=== PATIENT | male | born 1970 ===

== ENCOUNTER 2016-09-29 16:08 | Inpatient (IN) | payer MEDICAID ==
[2016-09-29 17:53] LABS: BASO % 0.3 % (0.0-2.0); EOS # 0.2 K/uL (0.0-0.7); EOS % 2.5 % (0.0-4.0); HEMATOCRIT 44.2 % (35.0-51.0); LYMPH # 1.5 K/uL (1.0-4.3); LYMPH % 19.8 % (20.0-40.0); MEAN CELL VOLUME 88.4 fL (80.0-94.0); MEAN CORPUSCULAR HEMOGLOBIN 29.8 pg (27.0-31.0); MEAN CORPUSCULAR HGB CONC 33.7 g/dL (33.0-37.0); MEAN PLATELET VOLUME 10.9 fL (7.2-11.7); MONO # 0.5 K/uL (0.0-0.8); MONO % 6.6 % (0.0-10.0); NRBC % 0.1 % (0.0-2.0); WHITE BLOOD COUNT 7.4 K/uL (4.8-10.8)
[2016-09-29 18:00] LABS: CHLORIDE 106 mmol/L (98-107); SODIUM 144 mmol/L (132-148)
[2016-09-29 18:01] LABS: POTASSIUM 3.7 mmol/L (3.6-5.2)
[2016-09-29 18:03] LABS: ALB/GLOB RATIO 1.2 (1.0-2.1); ALKALINE PHOSPHATASE 86 U/L (38-126); ALT/SGPT 16 U/L (21-72); AST/SGOT 17 U/L (17-59); BLOOD UREA NITROGEN 12 mg/dL (9-20); CARBON DIOXIDE 30 mmol/L (22-30); GFR AFRICAN-AMERICAN > 60; GLUCOSE,RANDOM 94 mg/dL (75-110); TOTAL PROTEIN 7.1 g/dL (6.3-8.3)
[2016-09-29 18:04] LABS: ALCOHOL SERUM < 10 mg/dl (0-10); CALCIUM 8.8 mg/dl (8.6-10.4)
--- NOTE | 2016-09-29 18:10 | C.PDOC ---
History Of Present Illness 46 y/o male presents to the ED requesting detox from heroin. Pt arrives prescreened; states he snorts heroin, last use this am. No physical complaints at this time. Time Seen by Provider: 09/29/16 17:52 Chief Complaint (Nursing): Substance Abuse History Per: Patient History/Exam Limitations: no limitations Suicide/Self Injury Attempted (Context): None Modifying Factor(s): Narcotics Severity: Mild Involuntary Hold By: None Recent travel outside of the [place]: No Past Medical History Reviewed: Historical Data, Nursing Documentation, Vital Signs Vital Signs: Last Vital Signs Temp 98.3 F 09/29/16 16:28 Pulse 60 09/29/16 16:28 Resp 20 09/29/16 16:28 BP 183/95 H 09/29/16 16:28 Pulse Ox 95 09/29/16 18:10 - Medical History PMH: Asthma Family History: States: Unknown Family Hx - Social History Hx Alcohol Use: Yes Hx Substance Use: Yes - Immunization History Hx Tetanus Toxoid Vaccination: No Hx Influenza Vaccination: No Hx Pneumococcal Vaccination: No Review Of Systems Except As Marked, All Systems Reviewed And Found Negative. Constitutional: Negative for: Fever Cardiovascular: Negative for: Chest Pain Respiratory: Negative for: Shortness of Breath Gastrointestinal: Negative for: Vomiting Neurological: Negative for: Headache Psych: Negative for: Suicidal ideation Physical Exam - Physical Exam Appears: Non-toxic, No Acute Distress Skin: Warm, Dry, No Rash Head: Atraumatic, Normacephalic Neck: Normal, Normal ROM, Supple Chest: Symmetrical Cardiovascular: Rhythm Regular, No Murmur Respiratory: Normal Breath Sounds, No Rales, No Rhonchi, No Wheezing Extremity: Bilateral: Atraumatic Neurological/Psych: Oriented x3, Normal Speech ED Course And Treatment - Laboratory Results Result Diagrams: 09/29/16 17:47 09/29/16 17:47 O2 Sat by Pulse Oximetry: 95 (room air) Pulse Ox Interpretation: Normal Disposition Counseled Patient/Family Regarding: Studies Performed, Diagnosis - Disposition Disposition: HOSPITALIZED Disposition Time: 18:47 Condition: GUARDED - Clinical Impression Clinical Impression: Drug dependence, Opiate dependence - Scribe Statement The provider has reviewed the documentation as recorded by the Katlyn Hardy Provider Attestation: All medical record entries made by the Katlyn were at my direction and personally dictated by me. I have reviewed the chart and agree that the record accurately reflects my personal performance of the history, physical exam, medical decision making, and the department course for this patient. I have also personally directed, reviewed, and agree with the discharge instructions and disposition. Decision To Admit - Pt Status Changed To: Hospital Disposition Of: Inpatient - Admit Certification Admit to Inpatient:: After my assessment, the patient will require hospitalization for at least two midnights. This is because of the severity of symptoms shown, intensity of services needed, and/or the medical risk in this patient being treated as an outpatient. - InPatient: Physician Admission Certification: I certify that this patient requires 2 or more midnights of care for the following reason:: needds inpatient detox - . Bed Request Type: Detox Patient Diagnosis: Drug dependence, Opiate dependence
[2016-09-29 18:14] LABS: RBC URINE 31 /hpf (0-3); URINE BILIRUBIN NEGATIVE (NEGATIVE); URINE BLOOD 1+ (NEGATIVE); URINE COLOR Yellow (YELLOW); URINE GLUCOSE (UA) NORMAL (Normal); URINE KETONE TRACE mg/dL (NEGATIVE); URINE LEUKOCYTE ESTERASE NEG Leu/uL (Negative); URINE PROTEIN NEGATIVE (NEGATIVE); WBC URINE 1 /hpf (0-5)
[2016-09-29] MEDS ORDERED: Buprenorphine Hydrochloride 2 mg SL ONE ×2 (19:49→20:50)
[2016-09-29] MEDS ORDERED: Albuterol HFA 90 mcg/actuation (8 g) INH PRN (21:17)
[2016-09-29] MEDS ORDERED: Aluminum Hydroxide/Magnesium Hydroxide Susp (30 mL) PO PRN (21:37)
[2016-09-30] MEDS: Buprenorphine Hydrochloride 2 mg SL SCH (09:51)
--- NOTE | 2016-09-30 13:20 | PCM.PSYCH ---
Initial Psychiatric Evaluation - Initial Psychiatric Evaluation Type of Admission: Voluntary Legal Status: Capacity Chief Complaint (in patient's own words): "I needed help, thank you very much" History of Present Illness and Precipitating Events: The patient is seen, chart reviewed and case discussed. This is a 46-year-old male, with 2 sons aged 1 and 2, and he lives with his sons and . 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 The patient admits to using up to 20 bags of heroin intranasally for the last 8 months. However, the first time he used was when he was 17 years old. He also uses cocaine occasionally, intranasally. He denies all other drugs and alcohol. He has been to detox once in the past but never been to rehabilitation or Suboxone or methadone maintenance. He goes to [facility] sometimes. No psych history or symptoms. He has withdrawal symptoms already. Past psych history: Denies Family psych history: Denies Medical history: Asthma and HTN (non-comp with meds: Norvasc 10 and Zestril 40) Current Medications: Active Medications Generic Name Dose Route Start Last Admin Trade Name Freq PRN Reason Stop Dose Admin Al Hydrox/Mg Hydrox/Simethicone 30 ml 09/29/16 21:37 Maalox 30 Ml PO TID PRN Indigestion / Heartburn Albuterol 1 puff 09/29/16 21:17 Ventolin Hfa 90 Mcg/Actuation (8 G) INH RQ6 PRN Shortness of Breath Buprenorphine HCl 8 mg 09/30/16 10:00 09/30/16 09:51 Subutex SL 10/04/16 09:59 8 mg DAILY ALEJANDRA Administration Taper Clonidine HCl 0.1 mg 09/29/16 21:37 Catapres PO Q8 PRN COWS Score More or Equal to 5 Loperamide HCl 2 mg 09/29/16 21:37 Imodium PO Q8 PRN Diarrhea Ondansetron HCl 4 mg 09/29/16 21:37 Zofran Tab PO Q8 PRN Nausea/Vomiting Trazodone HCl 100 mg 09/29/16 21:40 Desyrel PO HS PRN insomnia Past Psychiatric History - Past Psychiatric History Previous Treatment History: None Pertinent Medical Hx (Current Medical&Sleep Prob, Allergies): Allergies Allergy/AdvReac Type Severity Reaction Status Date / Time No Known Allergies Allergy Verified 09/29/16 16:39 Albuterol HFA [Ventolin HFA 90 mcg/actuation (8 g)] 2 puff IH [id number] 09/29/16 Review of Systems - Neurological Neurological: UNREMARKABLE - Psychiatric Psychiatric: Abnormal Sleep Pattern, Anxiety. absent: Depression, Hallucinations, Homicidal Ideation, Paranoia, Suicidal Ideation Mental Status Examination - Personal Presentation Personal Presentation: Looks older than stated age - Affect Affect: Broad - Motor Activity Motor Activity: Calm - Reliability in Providing Information Reliability in Providing Information: Good - Speech Speech: Organized - Mood Mood: Neutral - Formal Thought Process Formal Thought Process: No Impairment - Cognitive Functions Orientation: Person, Place, Situation, Time Sensorium: Alert Attention/Concentration: Attentive Estimate of Intelligence: Average Judgement: Intact, as evidence by: Insight regarding need for hospitalization Memory: Recent intact, as evidence by: Ability to recall events of the day, Remote intact, as evidenced by: Abilit to recall sig. life events - Risk Risk: Withdrawal, Diminished functioning - Strength & Assets Inventory Strength & Assets Inventory: Family support, Employment history, Cooperative DSM 5 DX - DSM 5 DSM 5 Diagnosis: Opioid withdrawal Opioid use d/o - severe Cocaine use d/o - moderate - Recommended/Plan of Treatment Treatment Recommendations and Plan of Treatment: Opioids: Methadone detox As needed meds and vitamins Attend groups and activities MS for abstinence and CBT for relapse prevention Support and psychoeducation Consider and encourage MAT Refer to after care Cocaine:MS for abstinence 33 min Projected ELOS: 4 days Prognosis: Good with treatment Discharge Plan and Discharge Criteria: No wdw sxs Refer to IOP and MAT (Suboxone) - Smoking Cessation Smoking Cessation Initiated: No Reason for not providing: not smoking
[2016-10-01] MEDS: Buprenorphine Hydrochloride 2 mg SL SCH (09:24)
--- NOTE | 2016-10-01 14:16 | PCM.PYCHPN ---
Psychiatric Progress Note - Psychiatric Progress Note Patient seen today, length of contact: 15 min Patient Chief Complaint: "Doing great" Problems Identified/Issues Discussed: The pt is seen, chart reviewed, case discussed with staff. The pt is compliant with medications and reports no side-effects. Symptoms are improving but needs more time to stabilize. After care discussed, support and psychoeducation given. Medication Change: Yes (detox changes daily) Medical Record Reviewed: Yes Mental Status Examination - Cognitive Function Orientation: Person, Place, Situation, Time Memory: Intact Attention: WNL Concentration: WNL Association: WNL Fund of Knowledge: WNL - Mood Mood: Neutral - Affect Affect: Broad - Speech Speech: Appropriate - Formal Thought Process Formal Thought Process: No Impairment - Suicidal Ideation Suicidal Ideation: No - Homicidal Ideation Homicidal Ideation: No Goal/Treatment Plan - Goal/Treatment Plan Need for Continued Stay: Discharge may exacerbated symptoms, Severe functional impairment Progress Toward Problem(s) and Goals/Treatment Plan: Opioids: Methadone detox As needed meds and vitamins Attend groups and activities AR for abstinence and CBT for relapse prevention Support and psychoeducation Consider and encourage MAT Refer to after care Cocaine:AR for abstinence Estimated Date of D/C: 10/03/16
[2016-10-02] MEDS: Buprenorphine Hydrochloride 2 mg SL SCH (09:30)
[2016-10-02 15:48] VITALS: RESP 18
--- NOTE | 2016-10-02 19:06 | PCM.PYCHPN ---
Psychiatric Progress Note - Psychiatric Progress Note Patient seen today, length of contact: 15 min Patient Chief Complaint: "I'm OK" Problems Identified/Issues Discussed: The pt is seen, chart reviewed, case discussed with staff. Support given, CBT and ME used briefly No new symptoms reported, improving slowly and needs some more time No SEs from medications, risks discussed. After care discussed Medication Change: Yes (detox changes daily) Medical Record Reviewed: Yes Mental Status Examination - Cognitive Function Orientation: Person, Place, Situation, Time Memory: Intact Attention: WNL Concentration: WNL Association: WNL Fund of Knowledge: WNL - Mood Mood: Neutral - Affect Affect: Broad - Speech Speech: Appropriate - Formal Thought Process Formal Thought Process: No Impairment - Suicidal Ideation Suicidal Ideation: No - Homicidal Ideation Homicidal Ideation: No Goal/Treatment Plan - Goal/Treatment Plan Need for Continued Stay: Discharge may exacerbated symptoms, Severe functional impairment Progress Toward Problem(s) and Goals/Treatment Plan: Opioids: Methadone detox As needed meds and vitamins Attend groups and activities ME for abstinence and CBT for relapse prevention Support and psychoeducation Consider and encourage MAT Refer to after care Cocaine:ME for abstinence Estimated Date of D/C: 10/03/16
[2016-10-03 06:25] VITALS: TEMP 97.4; O2SAT 99
[2016-10-03 08:56] VITALS: BP 155/92; PULSE 57
[2016-10-03] MEDS: Buprenorphine Hydrochloride 2 mg SL SCH (09:10)
== END 2016-10-03 09:45 | disposition home or self-care (01) | DRG 745 ==
LOC: C.ER 16:08 → C.7D 18:48
PROVIDERS: ADMIT Psychiatry & Neurology Psychiatry; ATTEND Psychiatry & Neurology Psychiatry
PROC: HZ2ZZZZ Detoxification Services for Substance Abuse Treatment (ICD-10-PCS; principal; 2016-09-29)
PROC: HZ59ZZZ Individual Psychotherapy for Substance Abuse Treatment, Supportive (ICD-10-PCS; 2016-09-29)
PROC: HZ46ZZZ Group Counseling for Substance Abuse Treatment, Psychoeducation (ICD-10-PCS; 2016-09-29)
DX: F11.23 Opioid dependence with withdrawal (principal); F14.20 Cocaine dependence, uncomplicated; I10 Essential (primary) hypertension; J45.909 Unspecified asthma, uncomplicated